=== PATIENT | female | born 1995 | race African-American/Black ===

== ENCOUNTER 2016-08-25 10:19 | Emergency (ER) | payer MEDICAID, OTHER ==
[~2016-08-25] VITALS: Ht 170.2 cm; Wt 59.0 kg
[~2016-08-25 10:19] MED LIST: NKM
[2016-08-25] MEDS ORDERED: NKM (10:36)
[2016-08-25 10:43] VITALS: BP 102/65
[2016-08-25] MEDS ORDERED: ACETAMINOPHEN-1 EAC1 ORAL (12:40)
[2016-08-25] MEDS ORDERED: VENTOLIN HFA18 GM INH (12:40)
[2016-08-25] MEDS ORDERED: ROBITUSSIN NIG118 ML PO (12:40)
[2016-08-25 12:52] VITALS: BP 105/67
[2016-08-25 12:53] VITALS: BP 105/67
--- NOTE | 2016-08-26 14:06 | Emergency Room Report ---
History of Present Illness General Chief Complaint: Upper Respiratory Illness Source: Patient Present Illness HPI 21 YO F with 1 week of dry cough, + sick son at home with same symptoms. Denies smoking, asthma, sore throat, ear pain, fever/chills, headache, neck pain /stiffness. Didnt have flu vaccine this year. Allergies: Coded Allergies: No Known Allergies (Unverified , 03/31/13) Patient History Past Medical History: none Past Surgical History: none Pertinent Family History: none Social History: Denies: alcohol use, drug use, smoking Last Menstrual Period: 07/18/2016 Now: No Immunizations: UTD Reviewed Nursing Documentation: PMH: Agreed, PSxH: Agreed Nursing Documentation-PMH Past Medical History: No Stated History Hx Cardiac Problems: No Hx Cancer: No Hx Gastrointestinal Problems: Yes - recent pid dx, iud Hx Neurological Problems: No Review of Systems All Other Systems: negative except mentioned in HPI Physical Exam Vital Signs Date Time Temp Pulse Resp B/P Pulse Ox O2 Delivery O2 Flow Rate FiO2 08/25/16 10:33 98.2 84 14 102/65 99 Room Air Sp02 EP Interpretation: reviewed, normal General Appearance: normal inspection, well appearing, no apparent distress, alert Head: atraumatic ENT: normal ENT inspection, hearing grossly normal, normal voice Neck: normal inspection, full range of motion, supple, no bony tend Respiratory: normal inspection, lungs clear, normal breath sounds, no rhonchi, no respiratory distress, no retraction, no accessory muscle use, no wheezing Cardiovascular #1: regular rate, rhythm, no edema Gastrointestinal: normal inspection, normal bowel sounds, non tender, soft, no guarding, no hernia Genitourinary: no CVA tenderness Musculoskeletal: normal inspection, back normal, normal range of motion, David' s Sign negative Neurologic: normal inspection, alert, responsive, speech normal Psychiatric: normal inspection, judgement/insight normal, mood/affect normal Skin: normal inspection, normal color, no rash Medical Decision Making Diagnostic Impression: Primary Impression: Upper respiratory infection Qualified Codes: J06.9 - Acute upper respiratory infection, unspecified; B97.89 - Other viral agents as the cause of diseases classified elsewhere ER Course 21 YO F with likely acute bronchitis/URI, viral. VSS. Afebrile. Lungs CTAB on exam. Very low concern for PNA DC with albuterol, T#3, cough syrup F/up with PMD Last Vital Signs Date Time Temp Pulse Resp B/P Pulse Ox O2 Delivery O2 Flow Rate FiO2 08/25/16 12:53 98.2 80 17 105/67 99 Room Air Status: improved Reevaluation Impression After discharge, patient angrily approached MD station and verbally cussed me out using foul, threatening language because she was not given the cough syrup she wanted. She stated "its a yellow pill, look it up! You should be able to figure it out. " I told patient that I wasnt sure what she was describing and that the regimen I prescribed is standard for URI/bronchitis treatment Disposition: HOME, SELF-CARE Condition: Improved Scripts Dextromethorphan Hb/Doxylamine (Robitussin Nighttime Cough Dm) 118 Ml Liquid 118 ML PO QHS for 7 Days, ML Prov: AMY MOMIN M.D. 08/25/16 Acetaminophen With Codeine (T#3) (TYLENOL #3 TAB*) Y Tab 2 TAB ORAL Q6H Y for For Pain for 7 Days, #30 TAB Prov: AMY MOMIN M.D. 08/25/16 Albuterol Sulfate (VENTOLIN HFA) 18 Gm Hfa.aer.ad 2 PUFFS INH EVERY 6 HOURS, #18 GM 0 Refills Prov: AMY MOMIN M.D. 08/25/16 Referrals: NON PHYSICIAN (PCP) Patient Instructions: Upper Respiratory Infection, Adult Additional Instructions: - Use albuterol inhaler as needed during the day for cough - At night you can try Tylenol #3 and/or cough syrup for cough - Follow up with your doctor in 2-3 days AMY MOMIN M.D. Aug 26, 2016 14:06
== END 2016-08-25 12:54 | disposition home or self-care (01) ==
LOC: EMR 11:57
DX: J06.9 Acute upper respiratory infection, unspecified (principal)
CPT/HCPCS: 99282

== ENCOUNTER → 2017-03-03 | Emergency (ER) | payer OTHER ==
[~2017-03-03] VITALS: Ht 170.2 cm; Wt 56.7 kg
[~2017-03-03] MED LIST changes: +ACETAMINOPHEN-1 EAC1 ORAL; +Azithromycin 250mg tab ORAL ONE; +ROBITUSSIN NIG118 ML PO; +VENTOLIN HFA18 GM INH
[2017-03-03 16:24] LABS: APPEARANCE,URINE CLEAR; KETONES,URINE 4+ (NEGATIVE); LEUKOCYTE ESTERASE ,URINE 2+ (NEGATIVE); NITRITE,URINE NEGATIVE (NEGATIVE); PH,URINE 6.5 (4.5-8.0); PROTEIN,URINE 2+ (NEGATIVE); UROBILINOGEN,URINE 1 MG/DL (0.0-1.0)
[2017-03-03 16:36] LABS: RBC,URINE TNTC /HPF (0 - 2)
[2017-03-03 16:37] LABS: BACTERIA,URINE FEW /HPF; SQUAMOUS EPITHELIAL CELL,UR FEW /LPF (NONE/OCC)
[2017-03-03 16:45] VITALS: BP 123/72
[2017-03-03 16:51] VITALS: BP 123/72
--- NOTE | 2017-03-03 21:06 | Emergency Room Report ---
History of Present Illness General Chief Complaint: Female Urogenital Problems Source: Patient Present Illness [facility] The patient is a 21-year-old female presenting for exposure to STD. The patient states that her boyfriend was diagnosed with an unknown STD last week. She states that he was treated. She denies any symptoms herself including dysuria, hematuria, vaginal discharge, abdominal pain, fever, chills Allergies: Coded Allergies: No Known Allergies (Unverified , 03/31/13) Patient History Past Medical History: see triage record Pertinent Family History: none Last Menstrual Period: 02/23/17 Reviewed Nursing Documentation: PMH: Agreed, PSxH: Agreed Nursing Documentation-PMH Past Medical History: No Stated History Hx Cardiac Problems: No Hx Cancer: No Hx Gastrointestinal Problems: Yes - recent pid dx, iud Hx Neurological Problems: No Review of Systems All Other Systems: negative except mentioned in HPI Physical Exam Vital Signs Date Time Temp Pulse Resp B/P Pulse Ox O2 Delivery O2 Flow Rate FiO2 03/03/17 16:08 98.8 73 14 123/72 100 Room Air Sp02 EP Interpretation: reviewed, normal General Appearance: no apparent distress, alert, GCS 15, non-toxic Head: normocephalic, atraumatic Eyes: bilateral eye PERRL, bilateral eye normal inspection Gastrointestinal: normal bowel sounds, non tender, soft, non-distended, no guarding, no rebound Genitourinary: normal inspection, no CVA tenderness Musculoskeletal: back normal, gait/station normal, normal range of motion, non- tender, calf tenderness Neurologic: alert, oriented x3, responsive, motor strength/tone normal, sensory intact, speech normal Psychiatric: judgement/insight normal, memory normal, mood/affect normal, no suicidal/homicidal ideation Skin: normal color, no rash, warm/dry, well hydrated Medical Decision Making PA Attestation Dr. Pope is my supervising physician. Patient management was discussed with my supervising physician Diagnostic Impression: Primary Impression: Exposure to STD ER Course The patient is a 21-year-old female presenting for STD exposure Differential diagnosis considered but not limited to: UTI, vaginitis, PID, STD Physical exam is unremarkable Urinalysis is not consistent with infection The patient will be treated for gonorrhea and Chlamydia as precaution due to exposure ER precautions are given Last Vital Signs Date Time Temp Pulse Resp B/P Pulse Ox O2 Delivery O2 Flow Rate FiO2 03/03/17 16:51 98.8 63 14 123/72 100 Room Air Status: improved Disposition: HOME, SELF-CARE Condition: Improved Referrals: NON PHYSICIAN (PCP) Patient Instructions: Sexually Transmitted Disease Additional Instructions: I discussed my findings with the patient. All questions and concerns have been answered. Treatment and medication compliance have been addressed. I advised the patient that they need to follow up with PMD in 3-5 days. Return to ED if symptoms worsen, new symptoms arise, or if needed for any reason. Patient verbalized understanding of discharge instructions. CONNIE ARZOLA Mar 03, 2017 21:06
== END | disposition home or self-care (01) ==
LOC: EMR 16:50
DX: Z20.2 Contact with and (suspected) exposure to infections with a predominantly sexual mode of transmission (principal)
CPT/HCPCS: 81003; 96372; 99283; J0696; Q0144